=== PATIENT | male | born 1960 | race Caucasian/White ===

== ENCOUNTER → 2024-11-03 | Outpatient (CLI) | payer OTHER ==
[~2024-11-03] MED LIST: HYDR-3363; PROHANCE 279.3MG/ML 15ML VIAL ONE; SYMB80INH; VENTAER INH
== END ==
LOC: M PLAIMG 10:02
PROVIDERS: ATTEND Specialist
DX: C67.9 Malignant neoplasm of bladder, unspecified (principal); R90.82 White matter disease, unspecified
CPT/HCPCS: 70553; A9576

== ENCOUNTER 2025-01-05 08:46 | Day surgery (SDC) | payer MEDICARE, OTHER ==
[~2025-01-05] VITALS: Ht 185.4 cm; Wt 72.4 kg
[~2025-01-05 08:46] MED LIST changes: +ALEV220T22 PO; -PROHANCE 279.3MG/ML 15ML VIAL ONE
[2025-01-05] MEDS ORDERED: LR 1,000 ML IV SCH ×2 (08:55→12:25)
[2025-01-05] MEDS ORDERED: ONDANSETRON 4MG 2ML VIAL As Ordered ONE (11:00)
[2025-01-05] MEDS ORDERED: dexAMETHasone 4 MG/ML 1 ML VIAL As Ordered ONE (11:00)
[2025-01-05] MEDS ORDERED: SUGAMMADEX SODIUM 500 MG/5 ML VIAL As Ordered ONE (11:01)
[2025-01-05] MEDS ORDERED: ROCURONIUM BROMIDE 50MG/5ML VIAL As Ordered ONE (11:01)
[2025-01-05] MEDS ORDERED: LIDOCAINE 2% 100 MG/5 ML SDV (FOR ANES.) As Ordered ONE (11:01)
[2025-01-05] MEDS ORDERED: MIDAZOLAM INJ 2 MG/2 ML VIAL As Ordered ONE (11:05)
[2025-01-05] MEDS: ceFAZolin SOD 2 GM IV ONCE IV ONE (11:39)
[2025-01-05] MEDS ORDERED: ACETAMINOPHEN 1000MG/100ML IV BAG As Ordered ONE (11:40)
[2025-01-05] MEDS ORDERED: HYDROMORPHONE HCL 0.5 MG/0.5 ML SYRINGE IV PRN (12:25)
[2025-01-05] MEDS ORDERED: ONDANSETRON 4MG 2ML VIAL IV PRN (12:25)
[2025-01-05] MEDS ORDERED: PYRI1TAB5 PO (12:55)
[2025-01-05] MEDS ORDERED: LEVO1TAB39 PO (12:55)
[2025-01-05] MEDS ORDERED: HYDR-3713 PO (12:55)
[2025-01-05] MEDS ORDERED: OXYB5TAB14 PO (12:55)
[2025-01-05 13:20] VITALS: BP 122/76; TEMP 98.3; O2SAT 95
== END 2025-01-05 14:05 | disposition home or self-care (01) ==
LOC: M SDC 08:46
PROVIDERS: ATTEND Urology
DX: C67.2 Malignant neoplasm of lateral wall of bladder (principal); N30.80 Other cystitis without hematuria; J45.909 Unspecified asthma, uncomplicated
CPT/HCPCS: 52240; 88307; C1769; J0131; J0688; J1100; J2250; J2405; J3010